=== PATIENT | male | born 1960 | race Caucasian/White ===

== ENCOUNTER 2018-12-01 20:24 | Emergency (ER) | payer OTHER, SELFPAY ==
[2018-12-01 20:25] VITALS: BP 140/93; PULSE 93; RESP 14; TEMP 36.4; O2SAT 99
[2018-12-01] MEDS: TET,DIPH,PERTUSS(ACELL),VAC/PF 0.5 ML SYRINGE IM (20:34)
--- NOTE | 2018-12-01 20:56 | PC.NURSE ---
cleaned and sutured the laceration.Well approximated after.
[2018-12-01 20:57] VITALS: BP 117/83; PULSE 87; RESP 15; O2SAT 98
--- NOTE | 2018-12-02 02:45 | ED_ITS ---
HPI - Skin/Abscess/Foreign Bdy General Chief complaint: Skin/Abscess/Foreign Body Stated complaint: LT INDEX FINGER CUT Time Seen by Provider: 12/01/18 20:25 Source: patient Mode of arrival: ambulatory Limitations: no limitations History of Present Illness HPI narrative: 58-year-old male nonsmoker and otherwise healthy presents with a work friend in the chief complaint of a 1.5 cm laceration on his left index fing er suffered while working. He was using a sharp knife to cut a material at work and the knife blade slipped and lacerated his finger. It was bleeding profusely and he attempted to stop the bleeding with a skin adhesive which stopped the bleeding but did not close the wound. His tetanus will need to be updated today. He denies any other injury. He is otherwise well and free of complaint. MD complaint: laceration Onset (ago): hour(s) Tetanus up to date: no Location: L hand Severity: mild Quality: burning Pain Consistency: constant Relieving factors: none Exacerbating factors: palpation Associated symptoms: denies other symptoms Treatments prior to arrival: bandages Related Data Home Medications Medication Instructions Recorded Confirmed No Known Home Medications 12/01/18 12/01/18 Allergies Allergy/AdvReac Type Severity Reaction Status Date / Time No Known Drug Allergies Allergy Verified 12/01/18 20:32 Review of Systems Constitutional Denies chills, Denies fever(s), Denies lethargy and Denies weakness Eyes Denies change in vision, Denies eye discharge, Denies irritation and Denies loss of vision ENT Ears, Nose, Mouth, and Throat: Denies change in voice, Denies neck pain and Denies sore throat Cardiovascular Denies chest pain, Denies irregular heart rhythm, Denies lightheadedness, Denies palpitations, Denies dyspnea, Denies dyspnea on exertion and Denies orthopnea Respiratory Denies cough, Denies dyspnea, Denies dyspnea on exertion and Denies wheezing Gastrointestinal Gastrointestinal: Denies abdominal pain, Denies change in bowel habits, Denies diarrhea, Denies nausea and Denies vomiting Genitourinary Denies hematuria, Denies flank pain, Denies urinary incontinence and Denies urinary urgency Musculoskeletal Denies neck pain Integumentary/Breasts Denies pruritus, Denies erythema, Denies rash and Reports wounds Neurologic Denies confusion, Denies loss of vision and Denies weakness Psychiatric Denies anxiety, Denies confusion, Denies depression, Denies homicidal ideation and Denies suicidal ideation Endocrine Denies palpitations Hematologic/Lymphatic Denies easy bruising Allergic/Immunologic Denies wheezing PFSH Social History Smoking Status: Former smoker Social History Smoking Status: Former smoker Exam Narrative Exam Narrative: GEN: AOx3 and in mild distress EYES: Pupils are equal, round, and reactive to light and accommodation. Extraoccular muscles are intact bilaterally. There is no subconjunctival hemorrhage or exudate. CHEST: Lungs are clear to auscultation bilaterally and free of wheezes, rales, or rhonchi. Heart rate is regular rhythm, there are no murmurs, clicks, rubs, or gallops. There is no chest wall tenderness. ABD: Abdomen is soft and nontender. There is no guarding or rebound. Bowel sounds are normal in all 4 quadrants. There is no mass or organomegaly. EXT: Full painless ROM of all extremities with no loss of sensation or strength. SKIN: 1.5 cm linear laceration on the volar surface of the distal left index finger. No active bleeding, visualized and bloodless field and no tendon involvement noted. Bacitracin used to attempt to remove skin adhesive which is largely affective, bleeding starts again, cleaned with chlorhexidine Initial Vital Signs Initial Vital Signs: Vital Signs Temperature 97.6 F 12/01/18 20:25 Pulse Rate 93 H 12/01/18 20:25 Respiratory Rate 14 12/01/18 20:25 Blood Pressure 140/93 H 12/01/18 20:25 Pulse Oximetry 99 12/01/18 20:25 Procedures Laceration Repair Laceration 1: Site: hand Side (If applicable): left Size (cm): 1.5 Description: linear Depth: simple, single layer Local Anesthetic: lidocaine 1% and with bicarb Amount of anesthesia used (mL): 3 Pre-repair: wound explored, irrigated extensively and deep structures intact Skin layer closed with: nylon Size (cm): 4-0 Number of sutures: 3 Technique: simple, interrupted Course Orders Ordered: Discontinued Medications Diphtheria/Tetanus/Acell Pertussis (Adacel) 0.5 ml IM .ONCE ONE Stop: 12/01/18 20:34 Last Admin: 12/01/18 20:34 Dose: 0.5 ml Vital Signs - 8 hr 12/01/18 20:25 12/01/18 20:57 Temperature 97.6 F Pulse Rate 93 H 87 Respiratory Rate 14 15 Blood Pressure 140/93 H Blood Pressure [Right Arm] 117/83 Pulse Oximetry 99 98 Discharge Plan Departure Patient Disposition: Home Clinical Impression: Finger laceration Qualifiers: Encounter type: initial encounter Finger: index finger Damage to nail status: without damage Foreign body presence: without foreign body Laterality: left Qualified Code(s): S61.211A - Laceration without foreign body of left index finger without damage to nail, initial encounter Discharge Date/Time: 12/01/18 21:03 Interventions: ED Discharge Assessment Last Done: 12/01/18 21:02 Instructions: DI for Laceration Repair -- Finger Activity Restrictions/Additional Instructions: Please keep the wound clean and dry to the best of your ability. Please monitor for signs of infection such as redness to the skin or increasing pain. Have the sutures removed by your doctor in about 7 days. If you are unable to get into your doctor, we would be happy to remove the sutures in that same timeframe. Prescriptions: No Action No Known Home Medications RF: 0
== END 2018-12-01 21:03 | disposition home or self-care (01) ==
LOC: ED 21:03
PROVIDERS: Emergency Provider Emergency Medicine
DX: S61.211A Laceration without foreign body of left index finger without damage to nail, initial encounter (principal); W26.0XXA Contact with knife, initial encounter; Y99.0 Civilian activity done for income or pay; Z23 Encounter for immunization
CPT/HCPCS: 12001; 90471; 99282; 99283; 90715